=== PATIENT | male | born 1980 | race Caucasian/White ===

== ENCOUNTER 2016-07-15 06:47 | Emergency (ER) | payer BC ==
[2016-07-15 07:19] VITALS: BP 130/74
[2016-07-15] MEDS ORDERED: Ketorolac 60 MG/2 ML SDV IM ONE (07:34)
[2016-07-15] MEDS ORDERED: Cyclobenzaprine 10 MG Tab PO ONE (07:35)
--- NOTE | 2016-07-15 07:40 | EDM.PDOC ---
ED HPI Trauma - General Chief Complaint: Lower Extremity Injury/Pain Stated Complaint: RT LEG PAIN Time Seen by Provider: 07/15/16 07:36 Source: Reports: Patient History Limitations: Reports: No limitations - History of Present Illness INITIAL COMMENTS - FREE TEXT/NARRATIVE: pt arrivd with pain in the rt buttock and it is shooting down the rt leg. He is on a diet pill and has lost 45 lbs and he is going to the gym and exercising rgularly. Occurred When: other (This started when he got up this am. 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 ) Occurred Where: home Method of Injury: unknown Severity: moderate Pain/Injury Location: Reports: back, other ( going down the rt leg. ) Consciousness: Reports: no loss of consciousness Allergies/ADRs: Allergies No Known Allergies Allergy (Verified 07/15/16 07:21) Home Medications: Ambulatory Orders Aspirin 07/15/16 Metoprolol Tartrate [Metoprolol Tartrate] 07/15/16 Sertraline [Zoloft] 07/15/16 [Confirmed 07/15/16] atorvaSTATin [Lipitor] 07/15/16 [Confirmed 07/15/16] Past Medical History - Past Health History Medical/Surgical History: Denies Medical/Surgical History Social & Family History - Tobacco Use Smoking Status *Q: Current Every Day Smoker Years of Tobacco use: 15 Packs/Tins Daily: 1 - Caffeine Use Caffeine Use: Reports: Soda - Alcohol Use Days Per Week of Alcohol Use: 0 - Recreational Drug Use Recreational Drug Use: No Recreational Drug Use Frequency: Patient Refuses To Answer Review of Systems - Review of Systems Review Of Systems: See Below Constitutional: Reports: no symptoms Eyes: Reports: no symptoms Ears: Reports: no symptoms Nose: Reports: no symptoms Mouth/Throat: Reports: no symptoms Respiratory: Reports: No Symptoms Cardiovascular: Reports: no symptoms GI/Abdominal: Reports: No symptoms Genitourinary: Reports: no symptoms Musculoskeletal: Reports: other (pain in the low back radiating down the rt leg. ) Skin: Reports: no symptoms Trauma Exam - Physical Exam Exam: See Below Text/Narrative:: pt arrived with low back pain radiating down the rt leg. This started suddenly this am. Exam Limited By: No limitations General Appearance: Reports: alert, moderate distress Head: Reports: atraumatic Eyes: bilateral eye: EOMI, normal inspection, PERRL Ears: Reports: normal TMs Nose: Reports: normal inspection Throat/Mouth: Reports: Normal inspection Neck: Reports: normal inspection Respiratory Exam: Reports: no respiratory distress Cardiovascular: Reports: regular rate, rhythm GI/Abdominal: Reports: soft, non tender Back: Reports: other ( tender in the rt lower back. He has a positive straight leg raising sign. ) Extremities: Reports: no evidence of injury Course - Vital Signs Last Recorded V/S: Last Vital Signs Temp 36.2 C 07/15/16 07:30 Pulse 89 07/15/16 07:30 Resp 16 07/15/16 07:30 BP 130/74 07/15/16 07:30 Pulse Ox 96 07/15/16 07:30 - Orders/Labs/Meds Orders: Active Orders 24 hr Category Date Time Status Lumbar Spine Min 4V [CR] Stat Exams 07/15/16 07:35 Taken UA W/MICROSCOPIC [URIN] Urgent Lab 07/15/16 08:13 Uncollected Meds: Medications Discontinued Medications Generic Name Dose Route Start Last Admin Trade Name Eliazar PRN Reason Stop Dose Admin Cyclobenzaprine HCl 10 mg 07/15/16 07:35 07/15/16 07:56 Flexeril PO 07/15/16 07:36 10 mg ONETIME ONE Administration Hydromorphone HCl 1 mg 07/15/16 08:26 07/15/16 08:42 Dilaudid IM 07/15/16 08:27 1 mg ONETIME ONE Administration Ketorolac Tromethamine 60 mg 07/15/16 07:34 07/15/16 07:56 Toradol IM 07/15/16 07:35 60 mg ONETIME ONE Administration - Re-Assessments/Exams Free Text/Narrative Re-Assessment/Exam: 07/15/16 08:42 pt was given dilaudid 1 mg, torodol 60mg im flexeril 10mg po. He had lumbar spine series and this did not show acute abnormalities. Departure - Departure Time of Disposition: 09:14 Disposition: Home, Self-Care 01 Condition: fair Clinical Impression: Acute back pain with sciatica Referrals: PCP,None [Primary Care Provider] - Forms: ED Department Discharge Care Plan Goals: appt with regular Dr In 3-4 days, rest, ice or heat to the buttock area, flexeril 10mg tid, percocet 5/325 q6h prn for pain, motrin 600mg tid, medrol dospak. If not improving pt will need a Mri of the lumbar spine. - My Orders Last 24 Hours: My Active Orders 07/15/16 07:35 Lumbar Spine Min 4V [CR] Stat 07/15/16 08:13 UA W/MICROSCOPIC [URIN] Urgent - Assessment/Plan Last 24 Hours: My Active Orders 07/15/16 07:35 Lumbar Spine Min 4V [CR] Stat 07/15/16 08:13 UA W/MICROSCOPIC [URIN] Urgent
[2016-07-15] MEDS ORDERED: HYDROmorphone 1 MG/ML Syringe IM ONE (08:26)
--- NOTE | 2016-07-15 09:25 | CR ---
5 lumbar type vertebral bodies. No pars defects. Vertebral body heights are well-maintained. Anterio r vertebral body wedging T11 greater than T12. Mild facet arthropathy lumbosacral junction.
== END 2016-07-15 09:29 | disposition home or self-care (01) ==
LOC: JP.ED 06:47
DX: M54.41 Lumbago with sciatica, right side (principal); F17.210 Nicotine dependence, cigarettes, uncomplicated
CPT/HCPCS: 72110; 96372; 99284; A9270; J1170; J1885

== ENCOUNTER 2024-01-03 06:13 | Day surgery (SDC) | payer MEDICAID ==
[2024-01-03] MEDS: Sodium Chloride 0.9% 1,000 ML IV SCH (07:19)
[2024-01-03] MEDS ORDERED: Dexamethasone 4 MG/ML SDV ONE (07:20)
[2024-01-03] MEDS ORDERED: Succinylcholine 200 MG/10 ML MDV ONE (07:20)
[2024-01-03] MEDS ORDERED: Neostigmine Methylsulfate 10 MG/10 ML MDV ONE (07:20)
[2024-01-03] MEDS ORDERED: Glycopyrrolate 0.2 MG/ML 5 ML MDV ONE (07:20)
[2024-01-03] MEDS ORDERED: Ondansetron 4 MG/2 ML SDV ONE (07:20)
[2024-01-03] MEDS ORDERED: Rocuronium 50 MG/5 ML Vial ONE (07:20)
[2024-01-03] MEDS ORDERED: fentaNYL 250 MCG/5 ML SDV ONE ×2 (07:20→08:10)
[2024-01-03] MEDS ORDERED: Propofol 200 MG/20 ML SDV ONE ×2 (07:20→09:07)
[2024-01-03] MEDS: Albuterol/Ipratropium 3.0-0.5 MG/3 ML Neb Soln NEB ONE (07:23)
[2024-01-03] MEDS: metroNIDAZOLE/Normal Saline 500 MG in Premix Bag 1 BAG IV ONE (07:28)
[2024-01-03] MEDS ORDERED: Labetalol 20 MG/4 ML Syringe ONE (08:17)
[2024-01-03] MEDS: ceFAZolin 2 GM in Premix Bag 1 BAG IV ONE (08:22)
[2024-01-03] MEDS: Lidocaine 1% with EPINEPHrine 1:100,000 50 ML MDV ONE (08:53)
[2024-01-03] MEDS: Bupivacaine 0.5% 50 ML MDV ONE (08:53)
[2024-01-03] MEDS ORDERED: Sugammadex Sodium 200 MG/2 ML VIAL IV ONE (08:56)
[2024-01-03] MEDS ORDERED: Ketorolac 30 MG/ML SDV ONE (08:56)
[2024-01-03] MEDS: Albuterol/Ipratropium 3.0-0.5 MG/3 ML Neb Soln INH ONE (09:28)
[2024-01-03] MEDS: Albuterol/Ipratropium 3.0-0.5 MG/3 ML Neb Soln ONE (10:39)
[2024-01-03 11:00] VITALS: BP 104/56; PULSE 87
[2024-01-04] MEDS: Albuterol/Ipratropium 3.0-0.5 MG/3 ML Neb Soln NEB ONE (07:57)
== END 2024-01-03 11:05 | disposition home or self-care (01) ==
LOC: JP.SDS 06:13
PROVIDERS: ATTEND Surgery
DX: K43.9 Ventral hernia without obstruction or gangrene (principal); E78.00 Pure hypercholesterolemia, unspecified; F41.9 Anxiety disorder, unspecified; K21.9 Gastro-esophageal reflux disease without esophagitis; I10 Essential (primary) hypertension; E66.9 Obesity, unspecified; G47.33 Obstructive sleep apnea (adult) (pediatric); F17.210 Nicotine dependence, cigarettes, uncomplicated; Z88.1 Allergy status to other antibiotic agents; Z88.5 Allergy status to narcotic agent
CPT/HCPCS: 00790-QZ; 94640; C1713; C1781; J0171; J0330; J0665; J0690; J1100; J1596; J1836; J1885; J1920; J2405; J2704; J2710; J2795; J3010; J3490; J7030; J7620